=== PATIENT | male | born 1980 | race Caucasian/White ===

== ENCOUNTER 2018-12-04 19:29 | Emergency (ER) | payer SELFPAY ==
[2018-12-04] MEDS ORDERED: ONDANSETRON HCL INJ/PF 4 MG/2 ML SDV IV ONE (20:10)
--- NOTE | 2018-12-04 20:10 | ER Document Report ---
ED Medical Screen (RME) - General Chief Complaint: Abdominal Pain Stated Complaint: EPIGASTRIC PAIN/BODY ACHES Time Seen by Provider: 12/04/18 20:05 Mode of Arrival: Ambulatory Information source: Patient Notes: 38-year-old male presented to ED for body aches with abdominal pain and nausea for 3 days with a fever started this afternoon. He states his 102 and he took 4 Aleve. His temperature is now down to 100.7. He is alert oriented respirations regular and unlabored. He states he has been dizzy with nausea. He states it comes and goes. Patient states he does have a gallbladder still. He denies smoking. I have greeted and performed a rapid initial assessment of this patient. A comprehensive ED assessment and evaluation of the patient, analysis of test results and completion of medical decision making process will be conducted by an additional ED providers. Physical Exam - Vital signs Vitals: Temp Pulse Resp BP Pulse Ox 100.7 F H 106 H 18 137/63 H 95 12/04/18 19:40 12/04/18 19:40 12/04/18 19:40 12/04/18 19:40 12/04/18 19:40 Course - Vital Signs Vital signs: Temp Pulse Resp BP Pulse Ox 100.7 F H 106 H 18 137/63 H 95 12/04/18 19:40 12/04/18 19:40 12/04/18 19:40 12/04/18 19:40 12/04/18 19:40
[2018-12-04 20:43] LABS: ABSOLUTE LYMPHOCYTES (AUTO) 0.7 10^3/uL (0.5-4.7); ABSOLUTE MONOCYTES (AUTO) 0.5 10^3/uL (0.1-1.4); ABSOLUTE NEUT (AUTO) 8.3 10^3/uL (1.7-8.2); BASOPHILS % (AUTO) 0.4 % (0-2); EOSINOPHILS % (AUTO) 0.1 % (0-6); HEMATOCRIT 40.9 % (37.9-51.0); HEMOGLOBIN 14.2 g/dL (13.5-17.0); LYMPHOCYTES % (AUTO) 7.5 % (13-45); MEAN CORPUSCULAR HEMOGLOBIN 29.9 pg (27.0-33.4); MEAN CORPUSCULAR HGB CONC 34.8 g/dL (32.0-36.0); MEAN CORPUSCULAR VOLUME 86 fl (80-97); PLATELET COUNT 209 10^3/uL (150-450); RED BLOOD COUNT 4.76 10^6/uL (4.35-5.55); RED CELL DISTRIBUTION WIDTH 13.2 % (11.5-14.0); TOTAL CELLS COUNTED % (AUTO) 100 %; WHITE BLOOD COUNT 9.5 10^3/uL (4.0-10.5)
[2018-12-04 20:56] LABS: APPEARANCE,URINE CLEAR; BILIRUBIN,URINE NEGATIVE (NEGATIVE); COLOR,URINE YELLOW; GLUCOSE, URINE NEGATIVE (NEGATIVE); KETONES,URINE NEGATIVE (NEGATIVE); LEUKOCYTE ESTERASE,URINE NEGATIVE (NEGATIVE); NITRITE,URINE NEGATIVE (NEGATIVE); PROTEIN,URINE NEGATIVE (NEGATIVE); URINE SPECIFIC GRAVITY 1.013; UROBILINOGEN,URINE NEGATIVE mg/dL (<2.0)
[2018-12-04 21:09] LABS: ALBUMIN 4.5 g/dL (3.5-5.0); ALKALINE PHOSPHATASE 81 U/L (38-126); ANION GAP 12 (5-19); ASPARTATE AMINO TRANSFERASE 41 U/L (17-59); BILIRUBIN,DIRECT 0.2 mg/dL (0.0-0.4); BILIRUBIN,TOTAL 0.5 mg/dL (0.2-1.3); BLOOD UREA NITROGEN 10 mg/dL (7-20); CALCIUM 10.3 mg/dL (8.4-10.2); CARBON DIOXIDE 26 mmol/L (22-30); CHLORIDE 100 mmol/L (98-107); GLUCOSE 108 mg/dL (75-110); POTASSIUM 4.2 mmol/L (3.6-5.0); TOTAL PROTEIN 7.1 g/dL (6.3-8.2)
[2018-12-04 22:36] LABS: INTERNATIONAL RATION (INR) 1.09; PROTHROMBIN TIME 14.1 SEC (11.4-15.4)
[2018-12-04] MEDS: NORMAL SALINE 1000 ML 1,000 ML IV PRN ×2 (22:43→23:59)
[2018-12-04 23:06] LABS: VENOUS BLOOD BASE EXCESS -2.9 mmol/L; VENOUS BLOOD HCO3 22.7 mmol/L (20-32); VENOUS BLOOD PCO2 42.1 mmHg (35-63); VENOUS BLOOD PH 7.35 (7.30-7.42)
--- NOTE | 2018-12-04 23:12 | RADIOLOGY REPORT (SQ) ---
EXAM DESCRIPTION: US ABDOMEN DOPPLER LIMITED COMPLETED DATE/TME: 12/04/2018 20:11 CLINICAL HISTORY: 38 years, Male, Upper abdominal pain body aches fever COMPARISON: None. TECHNIQUE: Limited right upper quadrant ultrasound LIMITATIONS: None. FINDINGS: Echogenic appearance to the liver with diffuse heterogeneity consistent with fatty infiltrative change and/or hepatocellular disease. No focal liver lesions. No gallstones or gallbladder wall thickening. CBD measures 2.8 mm. Visualized pancreas, abdominal aorta, inferior vena cava are unremarkable. Right kidney is unremarkable. No ascites IMPRESSION: Heterogeneous echotexture to the liver consistent with fatty infiltrative change and/or hepatocellular disease copyright 2010 [employer]- All Rights Reserved
[2018-12-04] MEDS ORDERED: ACETAMINOPHEN 325 MG TABLET PO ONE (23:18)
--- NOTE | 2018-12-04 23:19 | RADIOLOGY REPORT (SQ) ---
EXAM DESCRIPTION: XR CHEST 2 VIEWS COMPLETED DATE/TME: 12/04/2018 22:11 CLINICAL HISTORY: 38 years, Male, fever,pain COMPARISON: None. NUMBER OF VIEWS: 2 TECHNIQUE: Frontal and lateral views of the chest LIMITATIONS: None. FINDINGS: Heart size is normal. Lungs are clear. No pneumothorax IMPRESSION: Negative chest copyright 2010 [employer]- All Rights Reserved
[2018-12-05 00:03] LABS: A TYPE INFLUENZA AG NEGATIVE (NEGATIVE); B INFLUENZA AG NEGATIVE (NEGATIVE)
[2018-12-05] MEDS ORDERED: FENTANYL CITRATE INJ/PF 100 MCG/2 ML AMPUL IV ONE (00:44)
[2018-12-05] MEDS ORDERED: PANTOPRAZOLE SODIUM 40 MG VIAL IV ONE (00:45)
--- NOTE | 2018-12-05 01:13 | RADIOLOGY REPORT (SQ) ---
CT abdomen and pelvis with contrast on 12/05/2018 at 12:35 AM CLINICAL INDICATION: Generalized abdominal pain, myalgias, nausea and vomiting and diarrhea TECHNIQUE: Multiple axial images are obtained throughout the abdomen and pelvis following the administration of IV contrast, 100 mL of Omnipaque 350 contrast was administered intravenously without complication. This exam was performed according to our departmental dose-optimization program, which includes automated exposure control, adjustment of the mA and/or kV according to patient size and/or use of iterative reconstruction technique. Total DLP is 2048.12 mGy*cm. COMPARISON: None FINDINGS: Abdomen: There is minimal bibasilar atelectasis. There is a small left renal cyst. The solid abdominal organs are otherwise unremarkable. There is no abdominal adenopathy. There is no free fluid or free air within the abdomen. The abdominal portion of the GI tract is unremarkable. Pelvis: There is no free fluid in the pelvis. There is no pelvic adenopathy by CT size criteria. Tiny normal appendix is visualized. The pelvic portion of the GI tract is unremarkable. Bilateral pars defects are noted at L5 with grade 1 spondylolisthesis at L5-S1. No acute bony abnormality is noted. IMPRESSION: No acute abnormality.
[2018-12-05] MEDS ORDERED: DOXYCYCLINE HYCLATE 100 MG TABLET PO ONE (03:09)
[2018-12-05 03:37] VITALS: BP 130/60
--- NOTE | 2018-12-05 05:54 | ER Document Report ---
Entered by FELICITA OROZCO SCRIBE 12/04/18 [id number] Acting as scribe for:KENNETH OROURKE DO ED GI/ - General Chief Complaint: Abdominal Pain Stated Complaint: EPIGASTRIC PAIN/BODY ACHES Time Seen by Provider: 12/04/18 20:05 Mode of Arrival: Ambulatory Information source: Patient Notes: 38-year-old male who presents to the emergency department today with complaints of generalized body aches for the last few days with associated abdominal "burning", diarrhea, nausea, and a headache. 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 Patient states that he does not come into contact directly with the chickens but does shake hands with people who do. Patient denies cough, congestion, or vomiting but does endorse nausea. 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 denies: Vomiting Genitourinary: No symptoms reported Male Genitourinary: No symptoms reported Musculoskeletal: See HPI, Muscle pain - body aches Skin: No symptoms reported Hematologic/Lymphatic: No symptoms reported Neurological/Psychological: See HPI, Headaches -: Yes All other systems reviewed and negative Physical Exam - Vital signs Vitals: Temp Pulse Resp BP Pulse Ox 100.7 F H 106 H 18 137/63 H 95 12/04/18 19:40 12/04/18 19:40 12/04/18 19:40 12/04/18 19:40 12/04/18 19:40 Interpretation: Tachycardic, Febrile - General General appearance: Appears well, Alert Notes: Appears uncomfortable - HEENT Head: Normocephalic, Atraumatic Eyes: Normal Pupils: PERRL - Respiratory Respiratory status: No respiratory distress Chest status: Nontender Breath sounds: Normal Chest palpation: Normal - Cardiovascular Rhythm: Regular Heart sounds: Normal auscultation Murmur: No - Abdominal Inspection: Normal Distension: No distension Bowel sounds: Normal Tenderness: Nontender Organomegaly: No organomegaly - Back Back: Normal, Nontender - Extremities General upper extremity: Normal inspection, Nontender, Normal color, Normal ROM, Normal temperature General lower extremity: Normal inspection, Nontender, Normal color, Normal ROM, Normal temperature, Normal weight bearing. No: Melo's sign - Neurological Neuro grossly intact: Yes Cognition: Normal Orientation: AAOx4 Yu Coma Scale Eye Opening: Spontaneous [place] Coma Scale Verbal: Oriented Yu Coma Scale Motor: Obeys Commands [place] Coma Scale Total: 15 Speech: Normal Motor strength normal: LUE, RUE, LLE, RLE Sensory: Normal - Psychological Associated symptoms: Normal affect, Normal mood - Skin Skin Temperature: Warm Skin Moisture: Dry Skin Color: Normal Skin irregularity: other - Puncture wound to right wrist, right second toe on right. No streaking erythema, fluctuance or induration Course - Re-evaluation Re-evalutation: 12/05/18 05:53 Patient is a 38-year-old male who comes in with fever, tachycardia, and nonspecific complaints of abdominal pain and myalgias. No acute findings on ultrasound, CT, or chest x-ray. Blood work benign except for slight elevation of total CK. No evidence for black spider bite.The combination of a grandson and female for is a female no Patient feels better after fluids and fentanyl. More nausea and taking p.o. without difficulty. Patient will be discharged home with doxycycline with concern for tick bite. He is agreeable to this plan will return if any worsening or concerning symptoms. Follow-up with PMD. Stable for discharge. Stool sent for culture as patient works in [employer]. - Vital Signs Vital signs: Temp Pulse Resp BP Pulse Ox 99 F 74 18 130/60 H 96 12/05/18 03:32 12/05/18 03:32 12/05/18 03:32 12/05/18 03:32 12/05/18 03:32 - Laboratory Result Diagrams: 12/04/18 20:25 12/04/18 20:25 Laboratory results interpreted by me: 12/04/18 12/04/18 12/04/18 20:25 20:25 20:25 Lymph % (Auto) 7.5 L Absolute Neuts (auto) 8.3 H Seg Neutrophils % 87.0 H Creatinine 1.28 H Calcium 10.3 H Creatine Kinase Urine Blood MODERATE H 12/04/18 22:20 Lymph % (Auto) Absolute Neuts (auto) Seg Neutrophils % Creatinine Calcium Creatine Kinase 687 H Urine Blood - Diagnostic Test Radiology reviewed: Reports reviewed Discharge - Discharge Clinical Impression: Myalgia Abdominal pain Qualifiers: Abdominal location: epigastric Qualified Code(s): R10.13 - Epigastric pain Diarrhea Qualifiers: Diarrhea type: unspecified type Qualified Code(s): R19.7 - Diarrhea, unspecified Condition: Stable Disposition: HOME, SELF-CARE Instructions: Tick Bites ([facility]) Additional Instructions: Please follow-up with your doctor this week. Please take the doxycycline as prescribed. Return if you have any further concerns or symptoms. Prescriptions: Doxycycline Hyclate 100 mg PO BID #28 capsule I personally performed the services described in the documentation, reviewed and edited the documentation which was dictated to the scribe in my presence, and it accurately records my words and actions.
--- NOTE | 2018-12-05 07:55 | EKG REPORT ---
SEVERITY:- ABNORMAL ECG - SINUS RHYTHM FIRST DEGREE AV BLOCK : Confirmed by: Kristal Husain 05-Dec-2018 07:55:15
[2018-12-07 07:15] LABS: ROCKY MTN SPOTTED FEV IGG EIA Negative (Negative)
[2018-12-07 07:16] LABS: ROCKY MTN SPOTTED FEVER IGM AB 0.37 index (0.00-0.89)
== END 2018-12-05 03:37 | disposition home or self-care (01) ==
LOC: ER 19:29
DX: A09 Infectious gastroenteritis and colitis, unspecified (principal); M79.10 Myalgia, unspecified site; R10.13 Epigastric pain; R10.84 Generalized abdominal pain; R11.0 Nausea; R51 Headache; R50.9 Fever, unspecified; R00.0 Tachycardia, unspecified
CPT/HCPCS: 93005; 99284; 96361; 96374; 96375; 36415; 87040; 87045; 87086; 89055; 87205; 82550; 83690; 85025; 85610; 82272; 80053; 81001; 86757 ×2; 87493; 82803; 83605; 87804; 71046; 76705; 93976; 74177; 93010; J3010; S0164; J7030